=== PATIENT | male | born 1945 | race Caucasian/White ===

== ENCOUNTER → 2017-02-20 09:47 | Outpatient (CLI) | payer MEDICARE ==
[2016-05-22 11:04] VITALS: BMI 22.7
[~2017-02-20 09:47] MED LIST: BAYER CHEWABLE81 MG PO; BETAPACE 80 MG80 MG PO; CENTRUM COMPLE1 EACH PO; CHILDREN'S CLARI5 MG PO; CLARITIN 10 MG10 MG PO; DIOVAN40 MG PO; FLOMAX0.4 MG PO; LASIX20 MG PO; METOPROLOL TART50 MG PO; NORVASC5 MG PO; PACERONE200 MG PO; PLAVIX75 MG PO; PROSCAR5 MG PO; XARELTO15 MG PO
== END | disposition home or self-care (01) ==
LOC: D.RT 09:47
DX: J84.10 Pulmonary fibrosis, unspecified (principal)

== ENCOUNTER → 2017-08-27 12:45 | Outpatient (CLI) | payer MEDICARE ==
[2016-05-22 11:04] VITALS: BMI 22.7
== END | disposition home or self-care (01) ==
LOC: D.RT 12:45
DX: J84.10 Pulmonary fibrosis, unspecified (principal)

== ENCOUNTER → 2018-04-17 12:33 | Outpatient (CLI) | payer MEDICARE ==
[2016-05-22 11:04] VITALS: BMI 22.7
== END | disposition home or self-care (01) ==
LOC: D.RT 12:33
DX: J84.10 Pulmonary fibrosis, unspecified (principal)

== ENCOUNTER → 2019-06-24 09:47 | Outpatient (CLI) | payer MEDICARE ==
[2016-05-22 11:04] VITALS: BMI 22.7
[~2019-06-24 09:47] MED LIST changes: +LIPITOR40 MG PO; +XARELTO20 MG PO
[2019-06-24 10:50] LABS: ANION GAP 7.9 mmol/L (8-16); CALCIUM 9.2 mg/dL (8.5-10.1); CARBON DIOXIDE 35.1 mmol/L (21.0-32.0); CREATININE - SERUM 1.3 mg/dL (0.6-1.3)
[2019-06-24 10:54] LABS: BASOPHILS 0.7 % (0-2); EOSINOPHILS 4.7 % (0-7); HEMATOCRIT 43.5 % (42.0-54.0); HEMOGLOBIN 13.9 g/dL (13.5-17.5); IMMATURE GRANULOCYTES 0.1 % (0-5); LYMPHOCYTES 28.9 % (15-50); MCH 30.5 pg (26.0-34.0); MCV 95.6 fL (80.0-100.0); MEAN PLATELET VOLUME 12.6 fL (7.4-10.4); MONOCYTES 7.9 % (2-11); NEUTROPHILS 57.7 % (40-80); PLATELET COUNT 194 10x3/uL (130-400); RBC 4.55 10x6/uL (4.20-6.10); RDW 13.9 % (11.5-14.5); WBC 7.3 10x3/uL (4.8-10.8)
[2019-06-24 11:00] LABS: INR 2.57 (0.85-1.17); PROTIME 26.9 SECONDS (11.6-15.0)
== END | disposition home or self-care (01) ==
LOC: D.CATH 09:47
PROVIDERS: ATTEND Internal Medicine Interventional Cardiology
DX: I48.91 Unspecified atrial fibrillation (principal)

== ENCOUNTER → 2019-06-24 09:58 | Outpatient (CLI) | payer MEDICARE ==
[~2019-06-24] VITALS: Ht 180.3 cm; Wt 66.4 kg
--- NOTE | ~2019-06-24 | HEMODYNAMI ---
PATIENT:DELMIS HERNANDEZ MEDICAL RECORD: [id number] : 43 LOCATION:[facility] ADMISSION DATE: 06/24/19 Generatedon:06/24/201912:33 Patient name: DELMIS HERNANDEZ Patient #: [id number] SSN: : 1945 Date of study: 06/24/2019 Page: Of Hemodynamic Procedure Report Patient Data Patient Demographics Procedure consent was obtained First Name: DELMIS Gender: Male Last Name: DAVID : 1945 [facility] Initial: BENJI Age: 74 year(s) Patient #: [id number] Race: Additional ID: [id number] Contact details [address]: [address] [place] [address] State: [place] City: [place] Zip code: [address] Past Medical History History of disease Date Diagnosis Comments CAD CHF Allergies Allergen Reaction Date Comments Reported Sulfa drugs 09/21/2015 Admission Admission Data Admission Date: 06/24/2019 Admission Time: 9:47 Procedure Procedure Types Cath Procedure Diagnostic Procedure Cardioversion External Procedure Description Procedure Date Procedure Date: 06/24/2019 Procedure Start Time: 12:05 Procedure End Time: 12:31 Procedure Staff Name Function Robert Powell MD Performing Physician Trav Kaur RT Monitor Иван Florentino RN Nurse Homar Siddiqi MD Additional personnel Rafael Elizabeth RN Nurse Procedure Data Cath Procedure Fluoroscopy Diagnostic fluoroscopy Total fluoroscopy Time: 0 time: 0 min min Diagnostic fluoroscopy Total fluoroscopy dose: 0 dose: 0 mGy mGy Contrast Material Contrast Material Type Amount (ml) Isovue 300 0 Estimated blood loss: 0 ml Procedure Complications No complications Procedure Medications Medication Administration Route Dosage 0.9% NaCl I.V. 100 ml/hr Oxygen etCO2 Nasal cannula 5 l/min Hemodynamics Rest Heart Rate: 88 (bpm) Snapshots Pre Cath Intra NCS Post Cath Vital Signs Time Heart Resp SPO2 etCO2 NIBP Rhythm Pain Sedation Rate (ipm) (%) (mmHg) (mmHg) Status Level (bpm) 11:55:12 101 21 100 29.7 102/72(83) NSR 0 (11) 10(A) , No pain 11:59:07 111 23 100 19 101/76(85) NSR 0 (11) 10(A) , No pain 12:03:01 121 19 100 16 101/79(91) NSR 0 (11) 10(A) , No pain 12:07:46 59 24 100 12.2 60/44(51) NSR 0 (11) 3(A) , No pain 12:11:35 59 18 99 0 74/52(65) NSR 0 (11) 3(A) , No pain 12:15:20 62 25 98 0 73/51(59) NSR 0 (11) 8(A) , No pain 12:19:18 60 19 99 0 65/46(53) NSR 0 (11) 8(A) , No pain 12:23:07 58 17 98 0 74/53(63) NSR 0 (11) 8(A) , No pain 12:27:01 61 16 100 24.4 84/55(62) NSR 0 (11) 8(A) , No pain 12:30:56 60 27 100 29 79/59(66) NSR 0 (11) 8(A) , No pain Medications Time Medication Route Dose Verified Delivered Reason Notes Effective ness by by 11:58:26 0.9% NaCl I.V. 100 Rafael Rafael Per ml/hr Glenn Elizabeth physician RN RN 11:58:54 Oxygen etCO2 5 Rafael Rafael for low Nasal l/min Glenn Elizabeth 02 sats cannula RN corporate quality engineer Log Time Note 11:41:45 Rafael Elizabeth RN sent for patient. Start room use. 11:41:46 Time tracking: Regular hours (M-F 7:00 - 5:00) 11:41:50 Plan of Care:Hemodynamics will remain stable., Cardiac rhythm will remain stable., Comfort level will be maintained., Respiratory function will remain adequate., Patient/ family verbilizes understanding of procedure., Procedure tolerated without complication., Recovers from procedure without complications.. 11:50:48 Patient arrived from Pre/Post Procedure Room to [facility] 3. Patient remains on bed/stretcher for procedure. 11:53:58 Signed procedure consent form obtained from patient. 11:53:59 Warm blankets applied, and le hugger turned on for patient comfort. 11:53:59 Correct patient and procedure confirmed by team. 11:54:00 ECG and BP/O2 sat monitors applied to patient. 11:54:00 Vital chart was started 11:57:13 Baseline sample Acquired. 11:57:18 Rhythm: atrial fibrillation 11:57:19 Full Disclosure recording started 11:57:31 H&P Date Dictated: 06/12/2019 Within 30 days and on chart., H&P Addendum completed by physician on day of procedure. (MUST COMPLETE FOR ALL OUTPATIENTS). 11:57:32 Pre-procedure instructions explained to patient. 11:57:33 Pre-op teaching completed and patient verbalized understanding. 11:57:34 Family in patients room. 11:57:35 Patient NPO since Midnight. 11:57:39 Is the patient allergic to Iodine/contrast media? No. 11:57:48 Is patient on blood thinner?Yes 11:57:51 ACC The patient was administered the following blood thiners within the last 24 hours: Xarelto 11:57:53 Patient diabetic? No. 11:57:56 Previous problem with sedation/anesthesia? No ? 11:57:58 Snore? Yes 11:57:59 Sleep apnea? No 11:58:00 Deviated septum? No 11:58:01 Opens mouth fully? Yes 11:58:02 Sticks out tongue? Yes 11:58:26 0.9% NaCl 100 ml/hr I.V. was administered by Rafael Elizabeth RN; Per physician; Verbal order read back and verified. 11:58:51 Airway obstruction? Yes Pulmonary Fibrosis 11:58:54 Oxygen 5 l/min etCO2 Nasal cannula was administered by Rafael Elizabeth RN; for low 02 sats; Verbal order read back and verified. 12:00:06 Dentures? No ? 12:00:22 Patient pain scale 0/10 ?. 12:01:02 IV patent on arrival in left forearm with 0.9% NaCl at [facility]. 12:01:04 Lab results completed and on chart. 12:01:07 Alarms reviewed by Lizzy Ledbetter 12:01:18 Quick Combo opened to sterile field. 12:01:31 Homar Siddiqi MD present and monitoring patient for TIVA. 12:04:48 Physician arrived 12:04:48 --------ALL STOP TIME OUT------ 12:04:49 Final Timeout: patient, procedure, and site verified with staff and physician. All members of the team are in agreement. 12:04:54 Fire Safety Assessment: C--Open oxygen or nitrous oxide is being used., E--There are other possible contributors. 12:04:59 Physical assessment completed. ASA score P 3 - A patient with severe systemic disease as per Robert Powell MD. 12:05:04 Sedation plan: TIVA Medication:Propofol 12:05:21 Quick combo pads placed on patients chest and back. 12:06:00 Procedure started. 12:06:30 Defibrillator synced and charged to 275 Joules. 12:06:41 Shock delivered. 12::59 Patient cardioverted to sinus bradycardia. 12:07:06 Procedure ended.(Physican Out) 12:07:22 Fluoroscopy time 00.00 minutes. 12:07:24 Fluoroscopy dose: 0 mGy 12:07:24 Flurop Dose total: 0 12:07:26 Dose Area Product 0 mGy/cm. 12:07:41 Contrast amount:Isovue 300 0ml. 12:07:46 Post Procedure Pulses reassessed and unchanged 12:07:55 Post-procedure physical assessment completed. ASA score P 3 - A patient with severe systemic disease as per Robert Powell MD. 12:07:58 Post procedure rhythm: sinus bradycardia 12:08:00 Estimated blood loss: 0 ml 12:08:01 Post procedure instruction explained to patient.Patient verbalizes understanding. 12:08:02 Patient needs reinforcement of post procedure teaching. 12:08:29 Procedure and supply charges have been captured, reviewed, submitted and are correct. 12:08:31 Procedure Complication : No complications 12:08:38 Operative report dictated upon procedure completion. 12:08:39 See physician's report for complete and final results. 12::54 Report given to Pre/Post Procedure Room. 12:31:19 Vital chart was stopped 12::37 Patient transfered to Pre/Post Procedure Room with Stretcher. 12:31:40 Procedure ended. 12:31:40 Full Disclosure recording stopped 12:31:44 End room use (Document Last) 12::58 End room use (Document Last) 12:33:13 End room use (Document Last) Device Usage Item Manufacture Quantity Catalog Hospital Part Current Minimal Lot# / Name Number Charge Number Stock Stock Fatimah al# Code [employer] 1 [id number] Combo Signature Audit Solen Stage Time Signature Unsigned Intra-Procedure 06/24/2019 Trav Kaur 12:31:58 PM RT(R) Intra-Procedure 06/24/2019 Иван Florentino 12:33:13 PM RN Intra-Procedure 06/24/2019 Robert Powell 12:33:[address] [address]
[2019-06-24 10:30] VITALS: BP 112/67; Ht 180.3 cm; Wt 66.4 kg
--- NOTE | 2019-06-24 12:43 | NUR ---
REC TO ROOM VIA STRETCHER SUPINE. MONITORING INITIATED. VSS. NO COMPLAINTS, PT HAS CALL LIGHT.
--- NOTE | 2019-06-24 12:59 | NUR ---
RESTING WITHOUT COMPLAINT. SISTER IN WAITING ROOM UPDATED ON PT RETURN AND IN NSR.
--- NOTE | 2019-06-24 13:15 | NUR ---
RESTING WITHOUT COMPLAINT, VSS.
--- NOTE | 2019-06-24 13:30 | NUR ---
ASSISTED TO SITTING POSITION. SANDWICH AND BEVERAGE PROVIDED. VSS. REMAINS NSR RATE 60'S.
--- NOTE | 2019-06-24 13:50 | NUR ---
R WRIST SOFT, NO BLEEDING OR HEMATOMA. 2ML AIR REMOVED FROM ZBAND. VSS.
--- NOTE | 2019-06-24 13:50 | NUR ---
IV REMOVED L FOREARM, TIP INTACT. MONITORING DISCONTINUED. PT DRESSING.
--- NOTE | 2019-06-24 13:55 | NUR ---
DC TO PRIVATE VEHICLE VIA WC WITH , HAS ALL BELONGINGS AND DC INSTRUCTIONS/FOLLOW UP APPTS REVIEWED.
--- NOTE | 2019-06-24 14:05 | NUR ---
EATING JELLO AND DRINKING SODA, NO COMPLAINTS. R WRIST SOFT, NO BLEEDING OR HEMATOMA. 2ML AIR RELEASED FROM Z BAND. VSS.
--- NOTE | 2019-06-24 14:14 | NUR ---
NOTED SM AMT BLEEDING TO R WRIST. ADDED 1 ML AIR BACK TO ZBAND, NO BLEEDING. VSS. CONT MONITORING.
--- NOTE | 2019-06-25 10:41 | EC ---
PATIENT:DELMIS HERNANDEZ DATE OF SERVICE: 06/24/19 SEX: M MEDICAL RECORD: [id number] DATE OF : 43 LOCATION:D.CAT AGE OF PATIENT: 74 ADMISSION DATE: 06/24/19 REFERRING PHYSICIAN: INTERPRETING PHYSICIAN: DAVID POWELL MD ECHOCARDIOGRAM REPORT ECHO CHARGES 4 ECHO COMPLETE Date: 06/24/19 CLINICAL DIAGNOSIS: ATRIAL FIB/ PRE-CARDIOVERSION ECHOCARDIOGRAPHIC MEASUREMENTS (adult normal given) AC root (d.<3.7cm) 2.9 cm LV Septum d (<1.2 cm> 1.0 cm Valve Excursion 1.4 cm LV Septum (systole) 1.1 cm Left Atria (s.<4.0cm> 4.8 cm LVPW d(<1.2cm) 0.9 cm RV (d.<2.3cm) 2.9 cm LVPW (sytole) 1.2 cm LV diastole(<5.6CM) 5.8 cm MV E-F(>70mm/sec) cm LV systole 4.5 cm LVOT Diameter 2.2 cm MV exc.(>10mm) cm Est.ejection fraction (50-75%) % DOPPLER: LVIT cm/sec A 60 cm/sec E cm/sec LA cm/sec RVSP 47.9 mmHg LVOT 68 cm/sec AOP1/2T m/s Asc. Ao 254 cm/sec RVOT 64 cm/sec RA cm/sec PA 93 cm/sec AV Gradient Peak 25.8 mmHg AV Mean 15.4 mmHg AV Area 0.6 cm MV Gradient Peak 2.9 mmHg MV Mean 1.6 mmHg MV Area cm COMMENTS: Residential Driver: Joe [facility] Diagnostic Technologist: 1 Dr. Powell TAPE# PACS Pericardial Effusion N DATE OF SERVICE: ECHOCARDIOGRAM FINDINGS: 1. Left ventricular chamber size is within normal limits. Left ventricular systolic function is normal. Overall ejection fraction is 55% to 60%. 2. Left atrium is dilated at 4.8 cm. Right atrium and right ventricle chambers are as well moderately dilated. 3. Valvular structures: Aortic valve demonstrates moderate calcific aortic ECHOCARDIOGRAM REPORT [id number] DELMIS HERNANDEZ stenosis, valve area calculates to 0.6 cm-squared with gradient of 25 mm across the valve. Visually, the valve appears better than the numbers. 4. Remaining valvular structures have normal structure and motion. 5. Doppler interrogation elsewise reveals mild aortic insufficiency, moderate mitral regurgitation, severe tricuspid regurgitation, no other valvular insufficiency or stenosis. Pulmonary systolic pressure is estimated at 48 mmHg. 6. No evidence of pericardial effusion or left ventricular thrombus. TRANSINT:[id number] Voice Confirmation ID: [id number] DOCUMENT ID: [id number] DAVID POWELL MD at 1041 CC: [id number] DICTATION DATE: 06/24/19 1159 HOSPITAL CARRIER: 06/24/19 1206 DEP CLI 06/24/19 [id number] [place] [address]
--- NOTE | 2019-06-25 10:41 | OP ---
PATIENT NAME: DELMIS HERNANDEZ MEDICAL RECORD: [id number] :43 LOCATION:D.CAT ADMISSION DATE: SURGEON: DAVID MONIQUE MD DATE OF OPERATION: 06/24/2019 PROCEDURE: DC cardioversion. INDICATION: Atrial fibrillation. PROCEDURE IN DETAIL: IV conscious sedation was per anesthesia. Continuous heart rate, O2 saturation, blood pressure monitoring all undertaken, all of which remained stable. He received 1 shock restoring sinus rhythm. OVERALL IMPRESSION: Successful DC cardioversion from atrial fibrillation to sinus rhythm. TRANSINT:[id number] Voice Confirmation ID: [id number] DOCUMENT ID: [id number] DAVID MONIQUE MD at 1041 CC: [id number] DICTATION DATE: 06/24/19 1208 NURSING PROGRAM MANAGER: 06/24/19 1214 DEP CLI 06/24/19 [facility] [address] [place] [address]
== END | disposition home or self-care (01) ==
LOC: D.CATH 09:58 → D.HCCARDIO 13:30 → D.HCCECHO 13:30
PROVIDERS: ATTEND Internal Medicine Interventional Cardiology
DX: I48.91 Unspecified atrial fibrillation (principal)